=== PATIENT | male | born 1955 | race Caucasian/White ===

== ENCOUNTER 2020-11-12 00:16 | Inpatient (IN) | payer MEDICARE, OTHER ==
[~2020-11-12] VITALS: Ht 167.6 cm; Wt 88.5 kg
--- NOTE | 2020-11-12 00:23 | NUR ---
Patient broght in by [facility] ambulance unit 27 from [facility] ER on 5150 hold for DTS and GD to be medically cleared to be admitted to MHU. Pt has paranoid schizophrenia and was placed on hold because he told [facility] staff that the voices had become worse and he was unable to tell if they were real, he also sought help because previously the voices had commanded him to kill himself. Pt. denies current SI, pt. is aox3, cooperative, calm.
[2020-11-12] MEDS ORDERED: PRAV80TA21 PO (01:07)
[2020-11-12] MEDS ORDERED: BENZ1TAB7 PO (01:07)
[2020-11-12] MEDS ORDERED: CYAN100T44 PO (01:07)
[2020-11-12] MEDS ORDERED: ACET1TAB23 PO (01:07)
[2020-11-12] MEDS ORDERED: PARO40TA4 PO (01:07)
[2020-11-12] MEDS ORDERED: VITAMIN B1 PO (01:07)
[2020-11-12] MEDS ORDERED: OMEP20TA5 PO (01:07)
[2020-11-12] MEDS ORDERED: GABA-532 PO (01:07)
[2020-11-12] MEDS ORDERED: CLON0.5T4 PO (01:07)
[2020-11-12] MEDS ORDERED: PALI6TAB PO (01:07)
[2020-11-12] MEDS ORDERED: CHOL500050 PO (01:07)
--- NOTE | 2020-11-12 01:35 | NUR ---
Pt stated he defecated on himself in ambulance, provided clean clothes in ER and bedbath supplies to wash himself until he can shower at the MHU.
--- NOTE | 2020-11-12 01:54 | NUR ---
Gave report to RADHA Hernandez.
--- NOTE | 2020-11-12 02:35 | NUR ---
Pt resting comfortably in ER with eyes closed. Offered food and drinks, pt accepted a drink. Pending transfer to mhu, will continue to monitor.
[2020-11-12 02:40] VITALS: BP 135/94
[2020-11-12] MEDS ORDERED: MAGNESIUM HYDROXIDE 30 ML LIQUID UDC PO PRN (03:00)
[2020-11-12] MEDS ORDERED: MAG HYDROX/AL HYDROX/SIMETH 30 ML LIQUID UDC PO PRN (03:00)
--- NOTE | 2020-11-12 03:30 | NUR ---
AT APPROX 0245, ADMITTED 65 YEARS OLD MALE TO [facility] MHU ON A 5150 FOR GD AND DTS. PER HOLD, PATIENT LIVES IN AN APARTMENT. HE CALLED ACCESS TWICE IN 2 DAYS STATING HIS AUDITORY HALLUCINATIONS ARE INTERFERING WITH HIS DAILY FUNCTIONING AND SAFETY. HE CAN NOT DISTINGUISHES FROM VOICES/PSYCHOSIS TO REALITY. UPON ADMISSION, PATIENT NOTED A/O X 1, HE WAS COMPLIANT WITH THE ADMISSION PROCESS. FACE TO FACE ASSESSMENT WAS DONE, PATIENT REFLECTS WHAT IS WRITTEN ON THE HOLE. HE WAS GIVEN HIS BOOKLET FOR PATIENT ON MENTAL HEALTH FACILITY RIGHTS. BODY ASSESSMENT WAS DONE, PATIENT NOTED WITH RED RASH ON HIS LOWER ABDOMEN AND A SMALL BRUISE IN HIS LOWER RIGHT LEG ANTERIOR ASPECTS. HIS BELONGINGS WERE REMOVED ANS SECURED IN A LOCKED LOCKER/ PATIENT WAS ADVISED OF THE UNIT RULES. PATIENT IS UNDER THE CARE OF DR PARK AND DR LUJAN/ WILL CONTINUE TO MONITOR Q15 MIN CHECKS.
[2020-11-12 07:30] VITALS: BP 132/75
--- NOTE | 2020-11-12 09:33 | NUR ---
Firearms Report: Senior Ruby Developer completed and submitted a [employer] firearms report for 5150 grave disability certifications. A copy of report has been placed in patient chart.
--- NOTE | 2020-11-12 10:00 | NUR ---
ARBEN Initial Discharge Plan: Patient resides at home alone [address] [place] [address]. [address] [place] [address] ([phone]). Patient has no family or supportive contact to be contacted at this time. ARBEN explored discharge options with patient and he would like a nursing facility for placement. ARBEN will continue to work with patient and MD to ensure a safe and proper discharge plan.
--- NOTE | 2020-11-12 10:00 | NUR ---
Treatment Plan: Patient refused to sign treatment plan form due to disoriented thought process.
[2020-11-12] MEDS ORDERED: ACETAMINOPHEN/CODEINE 300-30 MG TABLET PO PRN (10:30)
--- NOTE | 2020-11-12 14:55 | NUR ---
Chappell: ARBEN received a call from Bethel Mcneill ([phone]) who is the conservation planner for pt. ARBEN contacted and left a voicemail that pt is at the hospital.
[2020-11-12 16:00] VITALS: BP 129/68
[2020-11-12] MEDS ORDERED: Medication Not On Formulary EA (Omeprazole 20 MG) PO SCH (17:00)
[2020-11-12] MEDS: OLANZAPINE ZYDIS 5 MG TAB.RAPDIS PO SCH ×2 (18:30→22:27)
--- NOTE | 2020-11-12 18:45 | NUR ---
received to care at 1800, up in clyde chair at nurses station for safety. pt is mostly non responsive at this time. staff was unable to feed him dinner. 1700 meds were not given, as he wouldnt respond, or take anything by mouth. report from previous nurse was tart he was pulling his pants down, stating that voices were telling him to do so.
[2020-11-12 20:18] VITALS: BP 111/74
[2020-11-12] MEDS: ATORVASTATIN 20 MG TABLET PO SCH (22:27)
--- NOTE | 2020-11-12 22:30 | NUR ---
pt has been agitated, talking to self, stating he was being punished, placing his hands over his ears at various timess. staff was able to feed him a little, and give him some fluids. he finally took his psychotropic medications at 2226. he remains up in [facility] for safety.
[2020-11-13] MEDS: LORAZEPAM 0.5 MG TABLET PO PRN (00:04)
--- NOTE | 2020-11-13 00:30 | NUR ---
he was assisted to bed, around 2300. PRN ativan was givwn at 0004, for restlessness. as of 29, he appears asleep. no distress noted.
--- NOTE | 2020-11-13 06:00 | NUR ---
slept 4.5 hours. continues to sleep. no distress noted.
[2020-11-13] MEDS: PANTOPRAZOLE SODIUM 40 MG TABLET.DR PO SCH (06:39)
[2020-11-13 07:21] LABS: HEMATOCRIT 36.4 % (36.7-47.1); MEAN CORPUSCULAR HEMOGLOBIN 30.3 uug (23.8-33.4); MEAN CORPUSCULAR VOLUME 88.8 fL (73.0-96.2); PLATELET COUNT (AUTO) 266 K/uL (152-348)
[2020-11-13 07:30] VITALS: BP 139/82
[2020-11-13 07:30] LABS: CREATININE 0.9 mg/dL (0.6-1.3); POTASSIUM 4.4 mmol/L (3.5-5.1)
[2020-11-13] MEDS: CYANOCOBALAMIN 1,000 MCG TABLET PO SCH (08:42)
[2020-11-13] MEDS: OLANZAPINE ZYDIS 5 MG TAB.RAPDIS PO SCH ×2 (08:42→16:58)
[2020-11-13] MEDS: SERTRALINE HCL 50 MG TABLET PO SCH (08:42)
[2020-11-13] MEDS: THIAMINE HCL 100 MG TABLET PO SCH (08:42)
[2020-11-13] MEDS ORDERED: CYANOCOBALAMIN 100 MCG TABLET PO SCH (09:00)
--- NOTE | 2020-11-13 11:17 | NUR ---
Gps/Mat Puncher- Fed self ind. after set up, compliant with his routine am .meds. Continent , ambulated to the bathroom with FWW, complained of lightheadedness when he was up. Safety emphasized, monitoring needs and safety
--- NOTE | 2020-11-13 15:37 | NUR ---
Gps/Slot Operations Director- Ate late lunch, patient napping till 1400 . Toileted ambulated with fww. rashes to abdominal area, small sore left scrotal area, good skin care provided, kept skin dry and clean. Z-guard ordered.
[2020-11-13 16:00] VITALS: BP 107/62
[2020-11-13 20:00] VITALS: BP 118/76
[2020-11-13] MEDS: ATORVASTATIN 20 MG TABLET PO SCH (20:58)
[2020-11-13] MEDS: TEMAZEPAM 7.5 MG CAPSULE PO PRN (20:59)
[2020-11-13] MEDS: Z GUARD REMEDY PASTE 57 GM TUBE TOP SCH (21:59)
--- NOTE | 2020-11-13 22:00 | NUR ---
received to care, up in clyde chair at nurses station, for safety. pleasant upon approach, but remains confused, and appearing distracted by internal stimuli. assisted to the bathroom, and given fluids and a bedtime snack. compliant with medications and staff direction. PRN restoril was given at 2058, for insomnia. as of this writing, he appears asleep in bed. no distress noted. will continue to monitor closely.
--- NOTE | 2020-11-14 06:20 | NUR ---
slept 7.25 hours. assisted with AM care, and shower. no distress noted.
[2020-11-14] MEDS: PANTOPRAZOLE SODIUM 40 MG TABLET.DR PO SCH (06:40)
[2020-11-14 07:30] VITALS: BP 129/96
[2020-11-14] MEDS: THIAMINE HCL 100 MG TABLET PO SCH (08:42)
[2020-11-14] MEDS: CYANOCOBALAMIN 1,000 MCG TABLET PO SCH (08:42)
[2020-11-14] MEDS: SERTRALINE HCL 50 MG TABLET PO SCH (08:42)
[2020-11-14] MEDS: Z GUARD REMEDY PASTE 57 GM TUBE TOP SCH ×2 (08:43→20:18)
[2020-11-14] MEDS: OLANZAPINE ZYDIS 5 MG TAB.RAPDIS PO SCH ×3 (08:43→20:22)
[2020-11-14 16:00] VITALS: BP 141/85
[2020-11-14 20:00] VITALS: BP 143/81
[2020-11-14] MEDS: ATORVASTATIN 20 MG TABLET PO SCH (20:14)
[2020-11-14] MEDS: TEMAZEPAM 7.5 MG CAPSULE PO PRN (20:14)
[2020-11-15] MEDS: PANTOPRAZOLE SODIUM 40 MG TABLET.DR PO SCH (06:23)
--- NOTE | 2020-11-15 06:53 | NUR ---
PT SLEPT FOR 7.30 HRS.MORE BRIGHTER AFFECT.HIS GAIT IS MORE STEADY BUT STILL NEEDS TO WALK WITH FWW.UNABLE TO COLLECT U/A SPECIMEN BECAUSE HE WENT TO THE BATHROOM ALREADY AND FORGOT TO SAVE HIS URINE.WILL ENDORSE TO DAY SHIFT.
[2020-11-15 07:50] VITALS: BP 126/80
[2020-11-15] MEDS: SERTRALINE HCL 50 MG TABLET PO SCH (08:45)
[2020-11-15] MEDS: CYANOCOBALAMIN 1,000 MCG TABLET PO SCH (08:46)
[2020-11-15] MEDS: Z GUARD REMEDY PASTE 57 GM TUBE TOP SCH ×2 (08:46→20:23)
[2020-11-15] MEDS: THIAMINE HCL 100 MG TABLET PO SCH (08:46)
[2020-11-15] MEDS: OLANZAPINE ZYDIS 5 MG TAB.RAPDIS PO SCH ×3 (08:46→16:22)
--- NOTE | 2020-11-15 09:08 | NUR ---
SNF Referral: ARBEN faxed clinicals to Severino from [facility] ([phone]) for placement option.
[2020-11-15] MEDS: ACETAMINOPHEN 325 MG TABLET PO PRN (14:40)
--- NOTE | 2020-11-15 14:50 | NUR ---
[facility]: SW received a call from Flory case specialist ([phone]) who follows pt and would want to be updated in regards to patient's discharge day.
[2020-11-15 16:12] VITALS: BP 106/66
[2020-11-15] MEDS: TEMAZEPAM 7.5 MG CAPSULE PO PRN (20:22)
[2020-11-15] MEDS: ATORVASTATIN 20 MG TABLET PO SCH (20:23)
[2020-11-15 20:25] VITALS: BP 109/68
[2020-11-16] MEDS: PANTOPRAZOLE SODIUM 40 MG TABLET.DR PO SCH (06:58)
[2020-11-16 07:30] VITALS: BP 133/91
[2020-11-16] MEDS: THIAMINE HCL 100 MG TABLET PO SCH (08:45)
[2020-11-16] MEDS: OLANZAPINE ZYDIS 5 MG TAB.RAPDIS PO SCH ×3 (08:45→16:37)
[2020-11-16] MEDS: SERTRALINE HCL 50 MG TABLET PO SCH (08:45)
[2020-11-16] MEDS: Z GUARD REMEDY PASTE 57 GM TUBE TOP SCH ×2 (08:47→20:32)
[2020-11-16] MEDS: CYANOCOBALAMIN 1,000 MCG TABLET PO SCH (08:48)
--- NOTE | 2020-11-16 10:01 | NUR ---
Court Hearing: Patients court hearing for 5250 was today and it was upheld for GD.
--- NOTE | 2020-11-16 11:26 | NUR ---
SNF Contact: SW received a call from Severino from [facility] ([phone]) who stated that pt is not accepted due to behavioral issues.
--- NOTE | 2020-11-16 11:27 | NUR ---
SNF Contact: ARBEN faxed clinicals to Tessa ([phone]) to [facility] for placement option.
--- NOTE | 2020-11-16 12:18 | NUR ---
SNF Contact: Pt accepted at [facility] per admin ([phone]).
[2020-11-16 15:32] VITALS: BP 106/66
[2020-11-16] MEDS: ACETAMINOPHEN 325 MG TABLET PO PRN (16:37)
[2020-11-16] MEDS: ATORVASTATIN 20 MG TABLET PO SCH (20:32)
[2020-11-16] MEDS: TEMAZEPAM 7.5 MG CAPSULE PO PRN (21:23)
[2020-11-17] MEDS: PANTOPRAZOLE SODIUM 40 MG TABLET.DR PO SCH (06:14)
[2020-11-17 07:30] VITALS: BP 84/58
[2020-11-17] MEDS: CYANOCOBALAMIN 1,000 MCG TABLET PO SCH (08:39)
[2020-11-17] MEDS: SERTRALINE HCL 50 MG TABLET PO SCH (08:39)
[2020-11-17] MEDS: THIAMINE HCL 100 MG TABLET PO SCH (08:39)
[2020-11-17] MEDS: OLANZAPINE ZYDIS 5 MG TAB.RAPDIS PO SCH ×3 (08:39→16:32)
[2020-11-17] MEDS: Z GUARD REMEDY PASTE 57 GM TUBE TOP SCH ×2 (08:40→21:14)
[2020-11-17 10:30] VITALS: BP 119/70
--- NOTE | 2020-11-17 14:46 | NUR ---
ARBEN Patient Individual Note: ARBEN met with patient and addressed his concerns regarding his rent. Patient stated his rent is paid for for the rest of the month and the next bill is due December 03. Patient is agreeable with going to [facility] upon discharge and will be contact with the social work assistant at [facility] for further assistance with his rent.
--- NOTE | 2020-11-17 14:50 | NUR ---
ARBEN Case Contact: ARBEN spoke with patient's egg caser Brianna ([phone]) and informed of the patient's rent status.
[2020-11-17 15:04] LABS: HEMATOCRIT 38.7 % (36.7-47.1); MEAN CORPUSCULAR HEMOGLOBIN 30.1 uug (23.8-33.4); MEAN CORPUSCULAR VOLUME 89.4 fL (73.0-96.2); PLATELET COUNT (AUTO) 302 K/uL (152-348)
[2020-11-17 15:11] LABS: CREATININE 1.1 mg/dL (0.6-1.3); POTASSIUM 4.8 mmol/L (3.5-5.1)
[2020-11-17 16:00] VITALS: BP 121/68
[2020-11-17] MEDS: TEMAZEPAM 7.5 MG CAPSULE PO PRN (21:06)
[2020-11-17] MEDS: ATORVASTATIN 20 MG TABLET PO SCH (21:06)
--- NOTE | 2020-11-17 22:00 | NUR ---
received to care, lying in bed, isolative, but pleasant upon approach.
--- NOTE | 2020-11-17 22:00 | NUR ---
received to care, lying in bed, isolative, but pleasant upon approach. no interactions with peers noted. c/o rajeev brown telling him that "they're going to kick my ass". he states he is aware that they are not real, but they distress him. PRN restoril was given at 2105. as of now, he remains awake, and still hearing voices. emotional support provided as needed. will continue to monitor closely.
[2020-11-17 22:15] VITALS: BP 103/71
[2020-11-17] MEDS: LORAZEPAM 0.5 MG TABLET PO PRN (23:17)
--- NOTE | 2020-11-17 23:17 | NUR ---
remains awake. continues to report hearing voices. PRN ativan given for anxiety. will continue to monitor.
--- NOTE | 2020-11-17 23:55 | NUR ---
appears to be asleep. no distress noted.
--- NOTE | 2020-11-18 06:00 | NUR ---
slept 6.75 hours
[2020-11-18] MEDS: PANTOPRAZOLE SODIUM 40 MG TABLET.DR PO SCH (06:40)
[2020-11-18 07:30] VITALS: BP 104/69
[2020-11-18] MEDS: SERTRALINE HCL 50 MG TABLET PO SCH (09:36)
[2020-11-18] MEDS: THIAMINE HCL 100 MG TABLET PO SCH (09:36)
[2020-11-18] MEDS: CYANOCOBALAMIN 1,000 MCG TABLET PO SCH (09:36)
[2020-11-18] MEDS: OLANZAPINE ZYDIS 5 MG TAB.RAPDIS PO SCH ×2 (09:36→16:43)
[2020-11-18] MEDS: Z GUARD REMEDY PASTE 57 GM TUBE TOP SCH ×2 (09:38→20:53)
[2020-11-18 17:13] VITALS: BP 119/78
--- NOTE | 2020-11-18 17:19 | NUR ---
Gps/Lead Generation Specialist- Denies hearing voices, stayed in bed napping this pm, patient verbalized worried about his cat, and does not know how to check, he does not have telephone , pt reassured. No hearing voices. Had 2 loose stools this am. no further stomach issues noted at thiis time. Cooperative and pleasant
[2020-11-18 20:02] VITALS: BP 117/72
[2020-11-18] MEDS: ATORVASTATIN 20 MG TABLET PO SCH (20:52)
[2020-11-18] MEDS: TEMAZEPAM 7.5 MG CAPSULE PO PRN (20:53)
--- NOTE | 2020-11-18 22:00 | NUR ---
received to care, lying in bed, isolative, but pleasant upon approach. denies hearing voices. has good insight into his condition, and situation. PRN restoril given at 2052, for insomnia. as of now, he appears to be asleep. no distress noted. will continue to monitor closely.
[2020-11-19] MEDS: PANTOPRAZOLE SODIUM 40 MG TABLET.DR PO SCH (06:22)
--- NOTE | 2020-11-19 06:30 | NUR ---
slept 6.75 hours. was awake at around 0530. had 5 episodes of watery stool. sat on th etoilet for a while, because he kept having to go, as soon as he went back to bed. it seems to have stopped, for now. will continue to monitor closely
[2020-11-19 07:30] VITALS: BP 121/76
[2020-11-19] MEDS: OLANZAPINE ZYDIS 5 MG TAB.RAPDIS PO SCH ×2 (08:47→16:43)
[2020-11-19] MEDS: CYANOCOBALAMIN 1,000 MCG TABLET PO SCH (08:47)
[2020-11-19] MEDS: THIAMINE HCL 100 MG TABLET PO SCH (08:47)
[2020-11-19] MEDS: SERTRALINE HCL 50 MG TABLET PO SCH (08:48)
[2020-11-19] MEDS: Z GUARD REMEDY PASTE 57 GM TUBE TOP SCH ×2 (08:48→21:00)
--- NOTE | 2020-11-19 15:30 | NUR ---
Gps/Registration Officer- Per patient , he is poditive for orthostatic hypotension, , her wear elastic compression stockings knee high at home.Informed not to stand up suddenly when coming from his bed or sitting positioning, will informed Medical group. Sitting 134/79 HR 68 , standing 96/56 HR 125 . Continue to be pleasant cooperative with the staff providing his care.Claimed had couple of loose stools earlier today but none this pm.
[2020-11-19 16:42] VITALS: BP 134/71
[2020-11-19 16:43] VITALS: BP 96/54
[2020-11-19 20:13] VITALS: BP 135/78
[2020-11-19] MEDS: LORAZEPAM 0.5 MG TABLET PO PRN (20:48)
[2020-11-19] MEDS: ATORVASTATIN 20 MG TABLET PO SCH (20:48)
--- NOTE | 2020-11-19 21:07 | NUR ---
received to care, lying in bed, pleasant upon approach. denies hallucinations, but believes people are talking about him, and have bad intentions. patient was reassured, and given PRN Ativan, for anxiety. will continue to monitor closely.
--- NOTE | 2020-11-20 04:37 | NUR ---
Patient has been up a few times during the night to use the bathroom. This fiction and nonfiction prose writer noticed the patient being slightly preoccupied by his internal stimuli. The patient was resistant to elaborating about his thoughts or feelings, but did deny SI and HI at that time. Plan to monitor the patient for safety and to make frequent rounds. Patient denied needing any PRN medications.
[2020-11-20] MEDS: PANTOPRAZOLE SODIUM 40 MG TABLET.DR PO SCH (06:11)
[2020-11-20 08:42] VITALS: BP 109/72
[2020-11-20] MEDS: CYANOCOBALAMIN 1,000 MCG TABLET PO SCH (08:55)
[2020-11-20] MEDS: SERTRALINE HCL 50 MG TABLET PO SCH (08:55)
[2020-11-20] MEDS: OLANZAPINE ZYDIS 5 MG TAB.RAPDIS PO SCH ×2 (08:55→16:59)
[2020-11-20] MEDS: THIAMINE HCL 100 MG TABLET PO SCH (08:55)
[2020-11-20] MEDS: Z GUARD REMEDY PASTE 57 GM TUBE TOP SCH ×2 (08:55→20:53)
[2020-11-20 16:50] VITALS: BP 142/80
[2020-11-20] MEDS ORDERED: DIPHENOXYLATE HCL/ATROP SULF TABLET PO PRN (16:55)
[2020-11-20 20:00] VITALS: BP 89/61
[2020-11-20] MEDS: ATORVASTATIN 20 MG TABLET PO SCH (20:53)
[2020-11-20] MEDS: TEMAZEPAM 7.5 MG CAPSULE PO PRN (22:32)
[2020-11-21] MEDS: PANTOPRAZOLE SODIUM 40 MG TABLET.DR PO SCH (06:22)
--- NOTE | 2020-11-21 06:55 | NUR ---
Patient had no looses stools last night and slept for 7.30 hours. Patient was worried at one point that people were talking about him in the mina. The " Voices told him ". This adjusto writer operator reassured patient . No issues at this time.
[2020-11-21 08:26] VITALS: BP 135/76
[2020-11-21] MEDS: SERTRALINE HCL 50 MG TABLET PO SCH (08:27)
[2020-11-21] MEDS: THIAMINE HCL 100 MG TABLET PO SCH (08:27)
[2020-11-21] MEDS: CYANOCOBALAMIN 1,000 MCG TABLET PO SCH (08:27)
[2020-11-21] MEDS: OLANZAPINE ZYDIS 5 MG TAB.RAPDIS PO SCH ×2 (08:27→16:25)
[2020-11-21] MEDS: Z GUARD REMEDY PASTE 57 GM TUBE TOP SCH ×2 (08:28→20:30)
[2020-11-21 15:27] VITALS: BP 110/75
[2020-11-21 20:11] VITALS: BP 118/72
[2020-11-21] MEDS: LORAZEPAM 0.5 MG TABLET PO PRN (20:26)
[2020-11-21] MEDS: ATORVASTATIN 20 MG TABLET PO SCH (20:26)
--- NOTE | 2020-11-21 22:00 | NUR ---
received to care, lying in bed, pleasant upon approach. denied hearing voices, but stated that he believed the voices on the television were talking about him. he was aware that this was a delusion, but he needed reassurance that this was so. reassurance, and emotional support, was provided. PRN ativan was given at 2025. as of now, he appears to be asleep. no distress noted. will continue to monitor closely.
--- NOTE | 2020-11-22 06:00 | NUR ---
slept 7.5 hours, total.
[2020-11-22] MEDS: PANTOPRAZOLE SODIUM 40 MG TABLET.DR PO SCH (06:30)
[2020-11-22 08:05] VITALS: BP 138/78
[2020-11-22] MEDS: SERTRALINE HCL 50 MG TABLET PO SCH (08:27)
[2020-11-22] MEDS: CYANOCOBALAMIN 1,000 MCG TABLET PO SCH (08:27)
[2020-11-22] MEDS: THIAMINE HCL 100 MG TABLET PO SCH (08:27)
[2020-11-22] MEDS: OLANZAPINE ZYDIS 5 MG TAB.RAPDIS PO SCH ×2 (08:27→17:22)
[2020-11-22] MEDS: Z GUARD REMEDY PASTE 57 GM TUBE TOP SCH ×2 (08:28→21:55)
[2020-11-22] MEDS: ACETAMINOPHEN 325 MG TABLET PO PRN (12:48)
[2020-11-22 16:18] VITALS: BP 107/72
[2020-11-22 20:00] VITALS: BP 110/53
[2020-11-22] MEDS: ATORVASTATIN 20 MG TABLET PO SCH (21:40)
[2020-11-22] MEDS: LORAZEPAM 0.5 MG TABLET PO PRN (21:40)
--- NOTE | 2020-11-22 22:30 | NUR ---
received to care, isolative, but pleasant and calm, upon approach. no interactions noted, with peers. continues to deny auditory/visual hallucinations. remains slightly paranoid, but has good insight. ABDOULAYE huerta at 2139. as of now, he appears to be asleep. no distress noted. will continue to monitor closely.
[2020-11-23] MEDS: PANTOPRAZOLE SODIUM 40 MG TABLET.DR PO SCH (06:27)
--- NOTE | 2020-11-23 06:30 | NUR ---
slept 8 hours, total.
[2020-11-23 07:30] VITALS: BP 136/84
[2020-11-23] MEDS: THIAMINE HCL 100 MG TABLET PO SCH (08:16)
[2020-11-23] MEDS: SERTRALINE HCL 50 MG TABLET PO SCH (08:17)
[2020-11-23] MEDS: Z GUARD REMEDY PASTE 57 GM TUBE TOP SCH (08:17)
[2020-11-23] MEDS: CYANOCOBALAMIN 1,000 MCG TABLET PO SCH (08:17)
[2020-11-23] MEDS: OLANZAPINE ZYDIS 5 MG TAB.RAPDIS PO SCH (08:17)
--- NOTE | 2020-11-23 08:20 | NUR ---
ARBEN Discharge Note: Patient [facility] be [facility] [place] [address]; ) via ambulance transportation at 1pm. Watchmaker Apprentice spoke with Titi laureano, Parts Analyst at [facility]; ([phone]), who stated patient will be accepted at facility today. Patient is alert and oriented x3 and is not able to plan for self-care at this time but is willing to accept care provided for her at the facility. Patient denies any suicidal or homicidal ideations. Patient is aware and agreeable with discharge plans. SW contacted patients catalytic case operator Flory from [facility] ([phone]) and notified of pts discharge. Patient does not have any family members at this time. Patient will continue to follow-up with her Psychiatrist Dr. Hernandez and Consumer Services Advisor Dr. Byers at [facility]. Patient presents with euthymic mood and congruent affect.
--- NOTE | 2020-11-23 13:30 | NUR ---
GPS: Nursing notes: Discharge notes: Pt is awake and responding to his name, cooperative with nursing care, compliant with his medications, following staff directions, denies SI/HI, AH/ VH, denies pain or discomfort, SOB. Discharge to [facility] at [address] [place] [id number] . Report given to facility nurse Izabella, RN Artificial Cherry Maker. Transported to facility via ambulance, took all belongings with him at hand. Patient will continue to follow-up with her Psychiatrist Dr. Hernandez and Montessori Toddler Teacher Dr. Byers at [facility] for aftercare. Pt's lacquer mixer Flory from [facility] notified of discharge by ARBEN.
== END 2020-11-23 13:30 | DRG 885 ==
LOC: ER 00:25 → GPS 02:18
PROVIDERS: ADMIT Psychiatry & Neurology Psychiatry; ATTEND Registered Nurse
DX: F25.9 Schizoaffective disorder, unspecified (principal); N40.0 Benign prostatic hyperplasia without lower urinary tract symptoms; E78.5 Hyperlipidemia, unspecified; G89.4 Chronic pain syndrome; Z20.822 Contact with and (suspected) exposure to COVID-19; F32.9 Major depressive disorder, single episode, unspecified; F29 Unspecified psychosis not due to a substance or known physiological condition; F41.9 Anxiety disorder, unspecified; I10 Essential (primary) hypertension; K21.9 Gastro-esophageal reflux disease without esophagitis; Z87.891 Personal history of nicotine dependence; Z68.31 Body mass index [BMI] 31.0-31.9, adult; E66.9 Obesity, unspecified
CPT/HCPCS: 36415; 71045; 84443; 85025; 87086; 93005; 97161; A4663